=== PATIENT | male | born 2000 | race Caucasian/White ===

== ENCOUNTER 2020-06-16 14:43 | Outpatient (CLI) | payer BC, OTHER, SELFPAY ==
--- NOTE | ~2020-06-16 | XR_ITS ---
EXAMINATION: XR lumbar spine 2-3V EXAM DATE: 06/16/2020 15:20 INDICATION: No known recent injury provided at this time. Pain of the low back. TECHNIQUE: Lumber spine frontal, lateral, lateral L5-S1 projections for interpretation. There is no prior study for comparison. FINDINGS: Vertebral body and disc heights are well-maintained. There is mild lower lumbar facet arthropathy. No endplate erosive change. Sacrum, sacroiliac joints, sacral arcuate lines are intact. IMPRESSION: 1. Mild lumbar facet arthropathy. Reviewed, dictated and finalized at location B.
--- NOTE | ~2020-06-16 | XR_ITS ---
EXAMINATION:XR_[id number]_CR DATE: 06/16/2020 15:20 INDICATION: Neck pain TECHNIQUE: AP, lateral and odontoid views of the cervical spine are provided. COMPARISON: None FINDINGS: Alignment is normal. Odontoid is intact. Normal atlantoaxial interval. Vertebral body heights are no rmal. Disc spaces are normal. Prevertebral soft tissues are normal. IMPRESSION: 1. Unremarkable cervical spine radiographs. Reviewed, dictated and finalized at location A.
[2020-06-16 15:06] LABS: Basophils Absolute Auto 0.04 K/mm3 (0.00-0.10); Basophils Percent Auto 0.8 % (0.0-1.0); Eosinophils Percent Auto 1.9 % (1.0-6.0); Hematocrit 44.8 % (40.0-54.0); Hemoglobin 15.1 g/dL (14.0-18.0); Immature Granulocyte Absolute 0.01 K/mm3 (0.00-0.00); Immature Granulocyte Percent A 0.2 % (0.0-0.0); Lymphocytes Absolute Auto 1.97 K/mm3 (1.10-4.50); Lymphocytes Percent Auto 37.1 % (18.0-42.0); Mean Corpuscular HGB Conc 33.7 g/dL (32.0-36.0); Mean Corpuscular Hemoglobin 30.6 pg (27.0-31.0); Mean Corpuscular Volume 90.7 fL (78.0-102.0); Mean Platelet Volume 10.8 fl (8.7-11.0); Monocytes Absolute Auto 0.53 K/mm3 (0.10-0.90); Neutrophils Absolute Auto 2.7 K/mm3 (1.7-7.2); Platelet Count Result 322 K/mm3 (150-420); Red Blood Count 4.94 M/mm3 (4.70-6.10); Red Cell Distribution Width 11.9 % (11.6-14.4); White Blood Count 5.3 K/mm3 (4.8-10.8)
[2020-06-16 16:38] LABS: Alanine Aminotransferase 55 U/L (16-63); Albumin Level 4.2 g/dL (3.4-5.0); Alkaline Phosphatase 68 U/L (46-116); Anion Gap 10 mmol/L (8-16); Aspartate Amino Transferase 18 U/L (15-37); Bilirubin,Total 0.3 mg/dL (0.00-1.00); Blood Urea Nitrogen 14 mg/dL (7-18); Calcium 9.6 mg/dL (8.5-10.1); Carbon Dioxide 25 mmol/L (21-32); Chloride 102 mmol/L (98-108); Estimated Glomerular Filt Rate > 60; Free T4 Free Thyroxine 0.91 ng/dL (0.76-1.46); Glucose 80 mg/dL (70-99); Osmolality Calculated 283 mOsm/kg (285-295); Potassium 5.1 mmol/L (3.5-5.1); Sodium 137 mmol/L (136-145); Thyroid Stimulating Hormone 2.36 uIU/mL (0.36-3.74); Total Protein 8.4 g/dL (6.4-8.2)
== END 2020-06-16 14:44 | disposition home or self-care (01) ==
LOC: CHSLAB 14:50
PROVIDERS: PCP Nurse Practitioner Family; Visit Provider Nurse Practitioner Family
DX: M21.829 Other specified acquired deformities of unspecified upper arm (principal); M54.9 Dorsalgia, unspecified; R53.83 Other fatigue
CPT/HCPCS: 36415; 72040; 72100; 80053; 84439; 84443; 85025